=== PATIENT | male | born 1955 | race African-American/Black ===

== ENCOUNTER 2016-06-10 11:49 | Emergency (ER) | payer SELFPAY ==
[2016-06-11] MEDS ORDERED: REGLAN IV ONE (02:02)
[2016-06-11] MEDS ORDERED: TORADOL IV ONE (02:02)
[2016-06-11] MEDS ORDERED: BENADRYL IV ONE (02:02)
[2016-06-11] MEDS ORDERED: NACL 0.9% 1000 ML 1,000 ML IV ONE (02:02)
[2016-06-11 02:41] LABS: Basophils % (Auto) 0.6 % (0.0-1.8); Hematocrit 41.8 % (35.5-45.6); Hemoglobin 13.9 gm/dl (11.8-15.2); Mean Corpuscular HGB Conc 33 % (32-34); Mean Corpuscular Hemoglobin 28 pg (28-32); Mean Corpuscular Volume 85 fl (84-94); Platelet Count 286 K/mm3 (140-440); Red Blood Count 4.94 M/mm3 (3.65-5.03); Red Cell Distribution Width 13.4 % (13.2-15.2); White Blood Count 7.6 K/mm3 (4.5-11.0)
[2016-06-11 02:52] LABS: Anion Gap 17 mmol/L; BUN/Creatinine Ratio 21.42; Blood Urea Nitrogen 15 mg/dL (9-20); Carbon Dioxide 28 mmol/L (22-30); Chloride 96.4 mmol/L (98-107); Glucose 170 mg/dL (75-100); Potassium 4.1 mmol/L (3.6-5.0); Sodium 137 mmol/L (137-145)
--- NOTE | 2016-06-11 03:14 | Cat Scan Report ---
FINAL REPORT PROCEDURE: CT HEAD/BRAIN WO CON TECHNIQUE: Computerized tomography of the head was performed without contrast material. HISTORY: headache COMPARISON: 03/09/2011 FINDINGS: Skull and scalp: Normal. Paranasal sinuses: Moderate opacification of the ethmoid sinuses.. Ventricles and subarachnoid spaces: Normal. Cerebrum: There is a small acute subdural hematoma along the right frontal temporal region of the cerebral hemisphere. This measures approximately 3 millimeters in the right temporal lobe region. In the right frontal lobe region this measures up to 3.5 millimeters. No other evidence of hemorrhage, hematoma or infarction is seen. No midline displacement or mass effect. The basilar cisterns are maintained.. Cerebellum and brainstem: No evidence of hemorrhage, acute infarction or mass. Vasculature: Normal. Comments: None. IMPRESSION: Small acute subdural hematoma along the right frontal and temporal region of the cerebral hemisphere measures up to 3.5 millimeters in the right frontal lobe region. No mass effect or midline displacement. The remainder of the imaging study is normal. The above critical results are discussed with the patient's ER physician Dr. Rodrigues at the time of dictation 02:09 central standard time on 06/11/2016
--- NOTE | 2016-06-11 03:26 | Emergency Department Report ---
ED Headache HPI - General Chief Complaint: Headache Stated Complaint: HEADACHE/NAUSEA Time Seen by Provider: 06/11/16 01:55 Source: patient Exam Limitations: no limitations - History of Present Illness Initial Comments: 60-year-old male with a past medical history diabetes, CAD with stent 2, and hypertension presents to the hospital complaints of headache since June 08. Headache started in the a.m., constant, located on the top of the head. Rated 10/10 in intensity and described as sharp. Pain worse with light and sounds. No alleviating factors reported. Positive significant nausea. Patient states he has not had anything to eat or drink in 3 days due to significant nausea. No vomiting reported. Pt initially denies any head trauma but later recalled that he fell backwards while at work on June 07. He had a hard hat but states he think he passed out for several seconds that he is having memory problems. Despite the stated past medical history patient states he does not take any medication including aspirin or Plavix. Allergies/Adverse Reactions: Allergies No Known Allergies Allergy (Verified 06/10/16 12:06) Home Medications: Ambulatory Orders No Known Home Medications [No Reported Home Medications] 06/11/16 ED Review of Systems ROS: Stated complaint: HEADACHE/NAUSEA Other details as noted in HPI Comment: All other systems reviewed and negative Other: Constitutional: No fevers chills Eyes: No eye pain visual changes ENT: No ear pain or throat pain Neck: Denies pain Respiratory: Denies cough wheezing shortness of breath Cardiovascular: Denies chest pain, palpitations, syncope GI: Denies abdominal pain, nausea, vomiting, diarrhea : Denies dysuria Musculoskeletal: Denies back pain, joint swelling Skin: Denies rash, lesions, erythema Neurologic: As per HPI Psychiatric: Denies suicidal ideation, hallucinations ED Past Medical Hx - Past Medical History Previous Medical History?: Yes Hx Hypertension: Yes Hx Heart Attack/AMI: Yes Hx Diabetes: Yes - Surgical History Past Surgical History?: Yes Hx Coronary Stent: Yes (x2) - Social History Smoking Status: Never Smoker Substance Use Type: None - Medications Home Medications: Home Medications Medication Instructions Recorded Confirmed Last Taken Type No Known Home Medications [No 06/11/16 06/11/16 Unknown History Reported Home Medications] ED Physical Exam - General Limitations: No Limitations - Other Other exam information: General: No limitations, patient is alert in no acute distress Head exam: Atraumatic, normocephalic Eyes exam: Normal appearance, pupils equal reactive to light, extraocular movements intact ENT: Moist mucous membrane, normal oropharynx Neck exam: Normal inspection, full range of motion, no meningismus nontender Respiratory exam: Clear to auscultation bilateral, no wheezes, rales, crackles Cardiovascular: Normal rate and rhythm, normal heart sounds Abdomen: Soft, nondistended, and nontender, with normal bowel sounds, no rebound, or guarding Extremity: Full range of motion normal inspection no deformity Back: Normal Inspection, full range of motion, no tenderness Neurologic: Alert, oriented x3, cranial nerves intact, no motor or sensory deficit Psychiatric: normal affect, normal mood Skin: Warm, dry, intact ED Course Vital Signs 06/10/16 06/10/16 06/11/16 12:02 23:42 01:10 Temperature 97.8 F 96.9 F L Pulse Rate 70 76 Respiratory 18 16 20 Rate Blood Pressure 179/96 167/89 Blood Pressure [Left] O2 Sat by Pulse 96 97 99 Oximetry 06/11/16 06/11/16 06/11/16 01:15 02:05 03:00 Temperature Pulse Rate 69 76 75 Respiratory 18 18 18 Rate Blood Pressure Blood Pressure 175/94 170/92 163/94 [Left] O2 Sat by Pulse 99 99 99 Oximetry 06/11/16 06/11/16 04:05 04:09 Temperature Pulse Rate 76 64 Respiratory 18 18 Rate Blood Pressure Blood Pressure 168/92 162/96 [Left] O2 Sat by Pulse 99 99 Oximetry - Reevaluation(s) Reevaluation #1: 06/11/16 03:27 Patient received Benadryl, Reglan, and Toradol - Consultations Consultation #1: 06/11/16 03:53 Pt accepted for transfer to [place] trauma ED. Accepting MD Dr Stevenson ED Medical Decision Making - Lab Data Result diagrams: 06/11/16 02:23 06/11/16 02:23 Lab Results 06/11/16 06/11/16 Range/Units 02:23 02:23 WBC 7.6 (4.5-11.0) K/mm3 RBC 4.94 (3.65-5.03) M/mm3 Hgb 13.9 (11.8-15.2) gm/dl Hct 41.8 (35.5-45.6) % MCV 85 (84-94) fl MCH 28 (28-32) pg MCHC 33 (32-34) % RDW 13.4 (13.2-15.2) % Plt Count 286 (140-440) K/mm3 Lymph % (Auto) 29.2 (13.4-35.0) % [place] % (Auto) 7.4 H (0.0-7.3) % Eos % (Auto) 1.0 (0.0-4.3) % Baso % (Auto) 0.6 (0.0-1.8) % Lymph # 2.2 (1.2-5.4) K/mm3 [place] # 0.6 (0.0-0.8) K/mm3 Eos # 0.1 (0.0-0.4) K/mm3 Baso # 0.0 (0.0-0.1) K/mm3 Seg Neutrophils % 61.8 (40.0-70.0) % Seg Neutrophils # 4.7 (1.8-7.7) K/mm3 Sodium 137 (137-145) mmol/L Potassium 4.1 (3.6-5.0) mmol/L Chloride 96.4 L (98-107) mmol/L Carbon Dioxide 28 (22-30) mmol/L Anion Gap 17 mmol/L BUN 15 (9-20) mg/dL Creatinine 0.7 L (0.8-1.5) mg/dL Estimated GFR > 60 ml/min BUN/Creatinine Ratio 21.42 % Glucose 170 H (75-100) mg/dL Calcium 9.0 (8.4-10.2) mg/dL - Radiology Data Radiology results: report reviewed CT head: Small acute subdural hematoma along the right frontal and temporal area measuring 3.5 mm in the frontal region. No mass affect or midline displacement. - Medical Decision Making Pt initially denied any trauma on initial history of present illness. When requestioned after obtaining CT result patient in states he thinks he have a some memory problems. He now remembers that he fell on the 18th while at work. He had on a hard hat. He thinks he might have passed out. Pt will be transferred to [place] ED since we do not have Trauma or neurosurgery available - Differential Diagnosis subarachnoid, subdural, ICH, migraine, tension headache Critical Care Time: No Critical care attestation.: If time is entered above; I have spent that time in minutes in the direct care of this critically ill patient, excluding procedure time. ED Disposition Clinical Impression: Subdural hematoma, HTN (hypertension) Disposition: DC/TX PSY HOSP/PSY UNIT Is pt being admited?: No Does the pt Need Aspirin: No Condition: Stable Instructions: Hypertension (ED) Time of Disposition: 03:54 (Dr Stevenson/Eyad)
[2016-06-11 04:10] VITALS: BP 162/96
== END 2016-06-11 04:25 ==
LOC: ED 11:49
DX: I62.00 Nontraumatic subdural hemorrhage, unspecified (principal); I10 Essential (primary) hypertension; I25.2 Old myocardial infarction; E11.9 Type 2 diabetes mellitus without complications
CPT/HCPCS: 36415; 70450; 80048; 85025; 96361; 96374; 96375; 99285; J1200; J1885; J2765; J7030